=== PATIENT | female | born 2000 | race Caucasian/White ===

== ENCOUNTER 2022-03-25 09:43 | Emergency (ER) | payer BC, MEDICAID ==
[~2022-03-25] VITALS: Ht 170.2 cm; Wt 59.0 kg
[2022-03-25 10:18] LABS: BASOPHILS % (AUTO) 0.4 % (0.0-2.0); EOSINOPHILS % (AUTO) 1.2 % (0.0-6.0); HEMATOCRIT 38 % (33-45); LYMPHOCYTES # (AUTO) 1.6 K/uL (0.8-4.8); LYMPHOCYTES % (AUTO) 14.1 % (20.0-44.0); MEAN CORPUSCULAR HGB CONC 34 g/dl (31.0-36.0); MEAN CORPUSCULAR VOLUME 89 fL (82-100); MONOCYTES % (AUTO) 8.5 % (2.0-12.0); NEUTROPHILS # (AUTO) 8.8 K/uL (1.8-8.9); NEUTROPHILS % (AUTO) 75.8 % (43.0-81.0); PLATELET COUNT (AUTO) 203 K/uL (150-450); RED BLOOD CELL COUNT(AUTO) 4.32 MIL/uL (4.0-5.2); WHITE BLOOD COUNT (AUTO) 11.6 K/uL (4.3-11.0)
[2022-03-25 10:26] LABS: CREATININE 0.8 mg/dL (0.6-1.3); POTASSIUM 4.2 mmol/L (3.5-5.1)
[2022-03-25 10:27] LABS: BILIRUBIN,URINE SMALL (NEGATIVE); COLOR,URINE DARK YELLOW (YELLOW); LEUKOCYTE ESTERASE ,URINE NEGATIVE (NEGATIVE); NITRITE, URINE NEGATIVE (NEGATIVE); PROTEIN,URINE NEGATIVE (NEGATIVE); UGLUCOSE NEGATIVE (NEGATIVE)
--- NOTE | 2022-03-25 10:31 | NUR ---
BIBS c/o pain lower left ab area radiating to back area and down to pelvic area slightly, cooperative and made comfortable, is sexually active, has history of PCOS.
[2022-03-25 11:22] LABS: BACTERIA,URINE Few /HPF (None Seen); RBC,URINE 0-2 /HPF (0-2)
[2022-03-25 11:23] LABS: MUCUS,URINE Moderate /LPF (None Seen); SQUAMOUS EPITHELIAL CELL,UR Rare /HPF (None Seen)
--- NOTE | 2022-03-25 11:24 | NUR ---
CALLED DR. ARASH MCCORMACK [phone] LEFT VM
[2022-03-25] MEDS ORDERED: IBUP-1955 PO (12:20)
--- NOTE | 2022-03-25 12:25 | NUR ---
Patient discharged to home in stable condition. Written and verbal after care instructions given. Patient verbalizes understanding of instruction.
[2022-03-25 12:26] VITALS: BP 120/67
== END 2022-03-25 12:26 | disposition home or self-care (01) ==
LOC: ER 09:59
DX: E28.2 Polycystic ovarian syndrome (principal); R10.31 Right lower quadrant pain
CPT/HCPCS: 36415; 76856-TC; 80048-TC; 81001; 84703-TC; 85025-TC; 87086-TC; 87491; 87591